=== PATIENT | female | born 1990 | race Caucasian/White ===

== ENCOUNTER 2016-11-27 16:08 | Emergency (ER) | payer MEDICAID ==
[2016-11-27 16:13] VITALS: BP 139/71
[2016-11-27] MEDS ORDERED: DIPH/PERTUSS(ACELL)/TETANUS VAC/PF 0.5 ML SYR (>=10YO) IM ONE (17:19)
--- NOTE | 2016-11-27 17:23 | ER Document Report ---
ED General - General Chief Complaint: Abscess Stated Complaint: POSSIBLE ABSCESS SHOULDER BLADES Time Seen by Provider: 11/27/16 16:59 Mode of Arrival: Ambulatory Information source: Patient TRAVEL OUTSIDE OF THE [place] IN LAST 30 DAYS: No - HPI Onset: Just prior to arrival Quality of pain: No pain, Achy, Dull - This is a 26-year-old female presents to the emergency room today with an infected area to the center of her back. She states that she can see it and wanted to know if it was an abscess. Past Medical History - General Information source: Patient - Social History Smoking Status: Never Smoker Family History: None Renal/ Medical History: Denies: Hx Peritoneal Dialysis Review of Systems - Review of Systems Constitutional: No symptoms reported EENT: No symptoms reported Cardiovascular: No symptoms reported Respiratory: No symptoms reported Gastrointestinal: No symptoms reported Genitourinary: No symptoms reported Female Genitourinary: No symptoms reported Musculoskeletal: No symptoms reported Skin: No symptoms reported Hematologic/Lymphatic: No symptoms reported Neurological/Psychological: No symptoms reported Physical Exam - Vital signs Vitals: Temp Pulse Resp BP Pulse Ox 98.6 F 91 16 139/71 H 98 11/27/16 16:11 11/27/16 16:11 11/27/16 16:11 11/27/16 16:11 11/27/16 16:11 Interpretation: Normal - General General appearance: Appears well, Alert - HEENT Head: Normocephalic, Atraumatic Eyes: Normal Pupils: PERRL - Respiratory Respiratory status: No respiratory distress Chest status: Nontender Breath sounds: Normal Chest palpation: Normal - Cardiovascular Rhythm: Regular Heart sounds: Normal auscultation Murmur: No - Abdominal Inspection: Normal Distension: No distension Bowel sounds: Normal Tenderness: Nontender Organomegaly: No organomegaly - Back Back: Normal, Nontender - Extremities General upper extremity: Normal inspection, Nontender, Normal color, Normal ROM , Normal temperature General lower extremity: Normal inspection, Nontender, Normal color, Normal ROM , Normal temperature, Normal weight bearing. No: Alvaro's sign - Neurological Neuro grossly intact: Yes Cognition: Normal Orientation: AAOx4 Mayela Coma Scale Eye Opening: Spontaneous Mayela Coma Scale Verbal: Oriented [place] Coma Scale Motor: Obeys Commands [place] Coma Scale Total: 15 Speech: Normal Motor strength normal: LUE, RUE, LLE, RLE Sensory: Normal - Psychological Associated symptoms: Normal affect, Normal mood - Skin Skin Temperature: Warm - There is a 1.5 cm lesion to the central aspect of her thoracic spine that is oozing it is not fluctuant it is erythemic and tender. Skin Moisture: Dry Skin Color: Normal Course - Re-evaluation Re-evalutation: 11/27/16 17:20 1.5 cm in circumference tender area to the central aspect of her thoracic spine nonfluctuant erythemic and tender to palpation there is drainage from the area. Patient was offered I&D to the area I did inform her I did not really think it would get much out of it she opted to do antibiotic treatment with warm compresses following up with her doctor in 3-5 days. - Vital Signs Vital signs: Temp Pulse Resp BP Pulse Ox 98.6 F 91 16 139/71 H 98 11/27/16 16:11 11/27/16 16:11 11/27/16 16:11 11/27/16 16:11 11/27/16 16:11 Discharge - Discharge Clinical Impression: Cellulitis Disposition: HOME, SELF-CARE Instructions: MRSA Cellulitis ([facility]), Oral Narcotic Medication ([facility]), Trimethoprim-Sulfa ([facility]) Prescriptions: Tramadol HCl [Ultram 50 mg Tablet] 50 mg PO Q4HP PRN #60 tab PRN Reason: Sulfamethoxazole/Trimethoprim [Bactrim Ds Tablet] 1 each PO 20 #20 tablet
== END 2016-11-27 18:01 | disposition home or self-care (01) ==
LOC: ER 16:08
DX: L03.312 Cellulitis of back [any part except buttock and flank] (principal)
CPT/HCPCS: 99283